=== PATIENT | male | born 1985 | race African-American/Black ===

== ENCOUNTER → 2023-12-21 | Outpatient (REF) | payer OTHER ==
[2023-12-21 17:00] LABS: BILIRUBIN,DIRECT 0.2 MG/DL (<0.4)
== END ==
LOC: M PLALAB 11:55 → EDSTATUS 12-28 17:14
PROVIDERS: ATTEND Nurse Practitioner Family
DX: M54.2 Cervicalgia (principal); M25.561 Pain in right knee; M25.562 Pain in left knee; M25.871 Other specified joint disorders, right ankle and foot; M25.872 Other specified joint disorders, left ankle and foot; M54.50 Low back pain, unspecified; K59.00 Constipation, unspecified; R10.11 Right upper quadrant pain; R20.2 Paresthesia of skin